=== PATIENT | male | born 1970 | race Caucasian/White ===

== ENCOUNTER 2016-07-14 19:21 | Emergency (ER) | payer BC ==
[2016-07-14] MEDS ORDERED: Albuterol/Ipratropium 3.0-0.5 MG/3 ML Neb Soln NEB ONE (20:02)
[2016-07-14] MEDS ORDERED: Ketorolac 60 MG/2 ML SDV IM ONE (20:02)
--- NOTE | 2016-07-14 20:02 | EDM.PDOC ---
ED HISTORY OF PRESENT ILLNESS - General Chief Complaint: Respiratory Problem Stated Complaint: COUGH FOR A MONTH AND RIGHT RIB CAGE Time Seen by Provider: 07/14/16 19:50 - History of Present Illness INITIAL COMMENTS - FREE TEXT/NARRATIVE: HISTORY AND PHYSICAL: History of present illness: Patient for [id number] male presents concern of one month of intermittent coughing patient also has history chronic back pain he said prior abdominal surgery and comes in with right posterior upper back pain he equivocates of dislocation is wrapped to his right abdomen he states he feels this has been provoker aggravated by coughing and his struggle with this intermittent cough over last month to month and half to no reported fever chills nausea vomiting or other concerns Review of systems: As per history of present illness and below otherwise all systems reviewed and negative. Past medical history: As per history of present illness and as reviewed below otherwise noncontributory. Surgical history: As per history of present illness and as reviewed below otherwise noncontributory. Social history: No reported history of drug or alcohol abuse. Family history: As per history of present illness and as reviewed below otherwise noncontributory. Physical exam: HEENT: Atraumatic, normocephalic, pupils reactive, negative for conjunctival pallor or scleral icterus, mucous membranes moist, throat clear, neck supple, nontender, trachea midline. Lungs: Clear to auscultation, breath sounds equal bilaterally, chest nontender. Heart: S1S2, regular, negative for clicks, rubs, or JVD. Abdomen: Soft, nondistended, nontender. Negative for masses or hepatosplenomegaly. Equivocal right costovertebral tenderness Pelvis: Stable nontender. Genitourinary: Deferred. Rectal: Deferred. Extremities: Atraumatic, negative for cords or calf pain. Neurovascular unremarkable. Neuro: Awake, alert, oriented. Cranial nerves II through XII unremarkable. Cerebellum unremarkable. Motor and sensory unremarkable throughout. Exam nonfocal. Diagnostics: CBC CMP troponin chest x-ray EKG CT abdomen and pelvis Therapeutics: Toradol 60 mg IM Impression: #1 right-sided thoracoabdominal pain #2 history of chronic back Definitive disposition and diagnosis as appropriate pending reevaluation and review of above. - Related Data Allergies/ADRs: Allergies Allergy/AdvReac Type Severity Reaction Status Date / Time No Known Allergies Allergy Verified 07/14/16 19:35 Home Meds: Home Meds Albuterol [Ventolin HFA] 2 puff INH Q4H PRN 11/01/14 [History] Citalopram [Citalopram Hbr] 40 mg PO DAILY 11/01/14 [History] Losartan [Cozaar] 50 mg PO DAILY 11/01/14 [History] Past Medical History - Past Surgical History Other Musculoskeletal Surgeries/Procedures:: right foot Social & Family History - Tobacco Use Smoking Status *Q: Former Smoker Years of Tobacco use: 20 Used Tobacco, but Quit: Yes Month Tobacco Last Used: 2009 Second Hand Smoke Exposure: Yes - Alcohol Use Days Per Week of Alcohol Use: 2 Number of Drinks Per Day: 4 Total Drinks Per Week: 8 - Recreational Drug Use Recreational Drug Use: No Drug Use in Last 12 Months: No Recreational Drug Type: Reports: Methamphetamine Recreational Drug Use Frequency: Not Used In Over 6 Months Recreational Drug Last Use: 2003 ED ROS GENERAL - Review of Systems Review Of Systems: ROS reveals no pertinent complaints other than HPI. ED EXAM, GENERAL - Physical Exam Exam: See Below (See dictation) Course - Vital Signs Last Recorded V/S: Last Vital Signs Temp 36.6 C 07/14/16 19:36 Pulse 117 H 07/14/16 19:36 Resp 22 H 07/14/16 19:36 BP 128/92 H 07/14/16 19:36 Pulse Ox 96 07/14/16 19:36 - Orders/Labs/Meds Orders: Active Orders 24 hr Category Date Time Status EKG Documentation Completion [RC] STAT Care 07/14/16 19:50 Active Pulse Oximetry [RC] ASDIRECTED Care 07/14/16 19:50 Active RT Aerosol Therapy [RC] ASDIRECTED Care 07/14/16 20:02 Active Abdomen Pelvis wo Cont [CT] Stat Exams 07/14/16 19:51 Taken Chest 2V [CR] Stat Exams 07/14/16 19:51 Taken Labs: Laboratory Tests 07/14/16 07/14/16 07/14/16 Range/Units 20:00 20:03 20:03 WBC 8.98 (4.0-11.0) K/uL RBC 5.37 (4.50-5.90) M/uL Hgb 16.5 (13.0-17.0) g/dL Hct 49.6 (38.0-50.0) % MCV 92.4 (80.0-98.0) fL MCH 30.7 (27.0-32.0) pg MCHC 33.3 (31.0-37.0) g/dL RDW Std Deviation 49.0 (28.0-62.0) fl RDW Coeff of Venkata 15 (11.0-15.0) % Plt Count 200 (150-400) K/uL MPV 10.60 (7.40-12.00) fL Neut % (Auto) 67.2 (48.0-80.0) % Lymph % (Auto) 22.7 (16.0-40.0) % Rhea % (Auto) 9.8 (0.0-15.0) % Eos % (Auto) 0.0 (0.0-7.0) % Baso % (Auto) 0.3 (0.0-1.5) % Neut # (Auto) 6.0 H (1.4-5.7) K/uL Lymph # (Auto) 2.0 (0.6-2.4) K/uL Rhea # (Auto) 0.9 H (0.0-0.8) K/uL Eos # (Auto) 0.0 (0.0-0.7) K/uL Baso # (Auto) 0.0 (0.0-0.1) K/uL Nucleated RBC % 0.0 /100WBC Nucleated RBCs # 0 K/uL INR (0.86-1.11) Sodium 142 (136-146) mmol/L Potassium 4.5 (3.5-5.1) mmol/L Chloride 105 (98-110) mmol/L Carbon Dioxide 28 (21-31) mmol/L BUN 18 (6.0-23.0) mg/dL Creatinine 1.2 (0.6-1.5) mg/dL Est Cr Clr Drug Dosing 71.15 mL/min Estimated GFR (MDRD) > 60.0 ml/min Glucose 108 (60-110) mg/dL Calcium 10.0 (8.8-10.8) mg/dL Total Bilirubin 0.5 (0.1-1.5) mg/dL AST 20 (5-40) IU/L ALT 32 (8-54) IU/L Alkaline Phosphatase 95 (40-150) Troponin I (0.0-0.29) NG/ML Total Protein 7.7 (6.0-8.0) g/dL Albumin 4.0 (3.5-5.0) g/dL Globulin 3.7 H (2.0-3.5) g/dL Albumin/Globulin Ratio 1.1 L (1.3-2.8) Urine Color DARK YELLOW Urine Appearance SLT CLOUDY Urine pH 5.5 (5.0-8.0) Ur Specific Thorndike >= 1.030 (1.001-1.035) Urine Protein 30 (NEGATIVE) mg/dL Urine Glucose (UA) NEGATIVE (NEGATIVE) mg/dL Urine Ketones NEGATIVE (NEGATIVE) mg/dL Urine Occult Blood NEGATIVE (NEGATIVE) Urine Nitrite NEGATIVE (NEGATIVE) Urine Bilirubin SMALL H (NEGATIVE) Urine Ictotest NEGATIVE Urine Urobilinogen 1.0 (<2.0) EU/dL Ur Leukocyte Esterase NEGATIVE (NEGATIVE) Urine RBC 0-2 (0-2/HPF) Urine WBC 1-2 (0-5/HPF) Ur Epithelial Cells OCCASIONAL (NONE-FEW) Urine Bacteria RARE (NEGATIVE) Urine Mucus MODERATE (NONE-MOD) 07/14/16 07/14/16 Range/Units 20:03 20:03 WBC (4.0-11.0) K/uL RBC (4.50-5.90) M/uL Hgb (13.0-17.0) g/dL Hct (38.0-50.0) % MCV (80.0-98.0) fL MCH (27.0-32.0) pg MCHC (31.0-37.0) g/dL RDW Std Deviation (28.0-62.0) fl RDW Coeff of Venkata (11.0-15.0) % Plt Count (150-400) K/uL MPV (7.40-12.00) fL Neut % (Auto) (48.0-80.0) % Lymph % (Auto) (16.0-40.0) % Rhea % (Auto) (0.0-15.0) % Eos % (Auto) (0.0-7.0) % Baso % (Auto) (0.0-1.5) % Neut # (Auto) (1.4-5.7) K/uL Lymph # (Auto) (0.6-2.4) K/uL Rhea # (Auto) (0.0-0.8) K/uL Eos # (Auto) (0.0-0.7) K/uL Baso # (Auto) (0.0-0.1) K/uL Nucleated RBC % /100WBC Nucleated RBCs # K/uL INR 0.96 (0.86-1.11) Sodium (136-146) mmol/L Potassium (3.5-5.1) mmol/L Chloride (98-110) mmol/L Carbon Dioxide (21-31) mmol/L BUN (6.0-23.0) mg/dL Creatinine (0.6-1.5) mg/dL Est Cr Clr Drug Dosing mL/min Estimated GFR (MDRD) ml/min Glucose (60-110) mg/dL Calcium (8.8-10.8) mg/dL Total Bilirubin (0.1-1.5) mg/dL AST (5-40) IU/L ALT (8-54) IU/L Alkaline Phosphatase (40-150) Troponin I < 0.10 (0.0-0.29) NG/ML Total Protein (6.0-8.0) g/dL Albumin (3.5-5.0) g/dL Globulin (2.0-3.5) g/dL Albumin/Globulin Ratio (1.3-2.8) Urine Color Urine Appearance Urine pH (5.0-8.0) Ur Specific Thorndike (1.001-1.035) Urine Protein (NEGATIVE) mg/dL Urine Glucose (UA) (NEGATIVE) mg/dL Urine Ketones (NEGATIVE) mg/dL Urine Occult Blood (NEGATIVE) Urine Nitrite (NEGATIVE) Urine Bilirubin (NEGATIVE) Urine Ictotest Urine Urobilinogen (<2.0) EU/dL Ur Leukocyte Esterase (NEGATIVE) Urine RBC (0-2/HPF) Urine WBC (0-5/HPF) Ur Epithelial Cells (NONE-FEW) Urine Bacteria (NEGATIVE) Urine Mucus (NONE-MOD) Meds: Medications Discontinued Medications Generic Name Dose Route Start Last Admin Trade Name Freq PRN Reason Stop Dose Admin Albuterol/Ipratropium 3 ml 07/14/16 20:02 07/14/16 20:10 Duoneb 3.0-0.5 Mg/3 Ml NEB 07/14/16 20:03 3 ml ONETIME ONE Administration Ketorolac Tromethamine 60 mg 07/14/16 20:02 07/14/16 20:39 Toradol IM 07/14/16 20:03 60 mg ONETIME ONE Administration Departure - Departure Time of Disposition: 21:22 Disposition: Home, Self-Care 01 Condition: good Clinical Impression: Thoracic back pain, Abdominal pain Referrals: PCP,None [Primary Care Provider] - Forms: ED Department Discharge Additional Instructions: The following information is given to patients seen in the emergency department who are being discharged to home. This information is to outline your options for follow-up care. We provide all patients seen in our emergency department with a follow-up referral. The need for follow-up, as well as the timing and circumstances, are variable depending upon the specifics of your emergency department visit. If you don't have a primary care physician on staff, we will provide you with a referral. We always advise you to contact your personal physician following an emergency department visit to inform them of the circumstance of the visit and for follow-up with them and/or the need for any referrals to a consulting specialist. The emergency department will also refer you to a specialist when appropriate. This referral assures that you have the opportunity for followup care with a specialist. All of these measure are taken in an effort to provide you with optimal care, which includes your followup. Under all circumstances we always encourage you to contact your private physician who remains a resource for coordinating your care. When calling for followup care, please make the office aware that this follow-up is from your recent emergency room visit. If for any reason you are refused follow-up, please contact the [facility] emergency department at and asked to speak to the emergency department charge nurse. Followup primary medical doctor one to 2 days return as needed as discussed Ultram albuterol as prescribed - My Orders Last 24 Hours: My Active Orders 07/14/16 19:50 EKG Documentation Completion [RC] STAT Pulse Oximetry [RC] ASDIRECTED 07/14/16 19:51 Abdomen Pelvis wo Cont [CT] Stat Chest 2V [CR] Stat 07/14/16 20:02 RT Aerosol Therapy [RC] ASDIRECTED - Assessment/Plan Last 24 Hours: My Active Orders 07/14/16 19:50 EKG Documentation Completion [RC] STAT Pulse Oximetry [RC] ASDIRECTED 07/14/16 19:51 Abdomen Pelvis wo Cont [CT] Stat Chest 2V [CR] Stat 07/14/16 20:02 RT Aerosol Therapy [RC] ASDIRECTED
[2016-07-14 20:31] LABS: CHLORIDE,CL 105 mmol/L (98-110); SODIUM,NA 142 mmol/L (136-146)
[2016-07-14 21:38] VITALS: BP 130/80
--- NOTE | 2016-07-17 09:42 | CT ---
EXAM DATE: 07/14/16 PATIENT'S AGE: 45 Patient: BENNIE CUNNINGHAM Facility: [place], [place] Site . Site : 1970 Study: CT Abdomen/Pelvis [id number]/21/[id number] 8:37:43 PM Ordering Physician: Bucky Berger Final Report: INDICATION: RUQ pain. CT ABDOMEN AND PELVIS WITHOUT CONTRAST TECHNIQUE: Multidetector CT imaging was performed through the abdomen and pelvis without intravenous contrast administration. Coronal and sagittal reconstructions were generated. COMPARISON: None. FINDINGS: Lower chest: Lung bases are clear. Liver: Diffuse fatty infiltration of liver. Gallbladder and bile ducts: Partially contracted gallbladder. No gallbladder wall thickening or calcified gallstones. No biliary dilation identified. Pancreas: Unremarkable. Spleen: Normal. Adrenals: No nodules or masses. Kidneys, ureters, and urinary bladder: No urinary tract stones identified. No renal masses or hydronephrosis. No bladder mass or definite wall thickening. Gastrointestinal tract: Normal caliber small bowel without wall thickening or obstruction. Appendix not identified, likely surgically absent. A few scattered colon diverticula, without evidence of diverticulitis. Abdominal wall: 6 centimeter fat-containing ventral hernia just superior to the umbilicus. Several surgical clips are seen within the anterior mid abdomen just deep to this hernia. Vascular structures: Normal for age. Peritoneum: No free air, abscess, or significant free fluid. Lymph nodes: No pathologically enlarged nodes identified. Reproductive organs: No pelvic masses. Bones: Normal for age. IMPRESSION: 1. No acute abnormality identified. 2. Fatty infiltration of the liver. 3. 6 centimeter fat-containing supraumbilical hernia. 4. Mild colonic diverticulosis. CHRIS DUVALL MD [employer] Dictated by Paul Duvall MD @ 07/14/2016 9:03:56 PM Dictated by: Paul Duvall MD @ 07/14/2016 21:04:28 (Electronic Signature) Report Signed by Proxy and Original Signed Document filed in the Medical Record. [facility]
--- NOTE | 2016-07-17 09:43 | CR ---
EXAM DATE: 07/14/16 PATIENT'S AGE: 45 Patient: BENNIE CUNNINGHAM Facility: [place], [place] Site . Site : 1970 Study: XRay Chest [id number]/21/[id number] 8:43:57 PM Ordering Physician: Bucky Berger Final Report: INDICATIONS: Pain. Shortness of breath. TECHNIQUE: Chest 3 view. COMPARISON: Chest radiograph November 01, 2014. FINDINGS: No pneumothorax, pleural effusion or airspace consolidation. Cardiac and mediastinal contours are within normal limits. Upper abdomen and osseous structures show no acute abnormality. IMPRESSION: No acute cardiopulmonary disease. Dictated by Hu Menendez MD @ 07/14/2016 9:01:38 PM Dictated by: Hu Menendez MD @ 07/14/2016 21:01:59 (Electronic Signature) Report Signed by Proxy and Original Signed Document filed in the Medical Record. [facility]
== END 2016-07-14 21:36 | disposition home or self-care (01) ==
LOC: MW.ED 19:21
DX: M54.6 Pain in thoracic spine (principal); R10.9 Unspecified abdominal pain; Z79.899 Other long term (current) drug therapy
CPT/HCPCS: 36415; 71020; 74176; 80053; 81001; 84484; 85025; 85610; 93005; 94664; 96372; 99284; J1885

== ENCOUNTER 2019-12-14 15:08 | Emergency (ER) | payer MEDICAID, OTHER ==
--- NOTE | 2019-12-14 16:39 | EDM.PDOC ---
ED HPI GENERAL MEDICAL PROBLEM - General Chief Complaint: Respiratory Problem Stated Complaint: FEVER/COUGH/SOB Time Seen by Provider: 12/14/19 15:09 Source of Information: Reports: Patient History Limitations: Reports: No Limitations - History of Present Illness INITIAL COMMENTS - FREE TEXT/NARRATIVE: HISTORY AND PHYSICAL: History of present illness: Patient is a 49-year-old male who presents to the ED today with concern of asthma exacerbation and possible coinfection. Patient states for the past 8 days he has had fevers, cough, body aches, and fatigue. Patient states he is also had a loss in taste and smell. Patient states that a few days ago he was actually feeling worse and today feels like he is on the mend. Patient states he has been fever free for 48 to 72 hours now. Patient states that he came to the ED today after a friend was concerned that he possibly has COVID. Patient states that he has noticed his asthma is exacerbated and he is using his albuter ol inhaler and his Symbicort inhaler. Patient denies any other symptoms or concerns. Patient denies fever, chills, chest pain, shortness of breath. Denies headache, neck stiff ness, change in vision, syncope, or near syncope. Denies nausea, vomiting, abdominal pain, diarrhea, constipation, or dysuria. Has not noted any blood in urine or stool. Patient has been eating and drinking appropriately. Review of systems: As per history of present illness and below otherwise all systems reviewed and negative. Past medical history: As per history of present illness and as reviewed below otherwise noncontributory. Surgical history: As per history of present illness and as reviewed below otherwise noncontributory. Social history: See social history for further information Family history: As per history of present illness and as reviewed below otherwise noncontributory. Physical exam: General: Patient is alert, oriented, and in no acute distress. Patient sitting comfortably on exam table. HEENT: Atraumatic, normocephalic, pupils equal and reactive bilaterally, negative for conjunctival pallor or scleral icterus, mucous membranes moist, TMs normal bilaterally, throat clear, neck supple, nontender, trachea midline. No drooling or trismus noted. No meningeal signs. No hot potato voice noted. Lungs: Patient speaking clearly without breathlessness, no wheezing or stridor, no accessory muscle use or respiratory distress. Auscultation deferred due to current COV-ID 19 outbreak. Dry cough on exam. Heart: Auscultation deferred due to current COV-ID 19 outbreak. Abdomen: Soft, nondistended Pelvis: Stable nontender. Genitourinary: Deferred. Rectal: Deferred. Skin: Intact, warm, dry. No lesions or rashes noted. Extremities: Atraumatic, negative for cords or calf pain. Neurovascular unremarkable. Neuro: Awake, alert, oriented. Cranial nerves II through XII unremarkable. Cerebellum unremarkable. Motor and sensory unremarkable throughout. Exam nonfocal. Notes: Discussed importance for follow-up with primary care provider. Signs and symptoms that would prompt return to the ED thoroughly discussed with patient. Patient was provided with a pulse oximeter to carefully monitor oxygen levels at home and instructed on when to return to the ED. Contact precautions discussed with patient. Voices understanding and is agreeable to plan of care. Denies any further questions or concerns at this time. Diagnostics: COVID 19 (patient declines labwork or CXR) Therapeutics: None Prescription: Prednisone Impression: Asthma exacerbation Flu like symptoms Plan: 1. Take medication as prescribed. Continue to use her at home inhalers as prescribed to you as discussed. While symptomatic, take an additional puff of your Symbicort inhaler daily. 2. Follow-up with a primary care provider as discussed. Return to the ED as needed and as discussed. Definitive disposition and diagnosis as appropriate pending reevaluation and review of above. - Related Data Allergies Allergy/AdvReac Type Severity Reaction Status Date / Time No Known Allergies Allergy Verified 12/14/19 15:34 Home Meds: Home Meds Albuterol [Ventolin HFA] 2 puff INH Q4H PRN 11/01/14 [History] DULoxetine [Cymbalta] 30 mg PO DAILY 12/14/19 [History] predniSONE [Prednisone] 20 mg PO DAILY 5 Days #5 tablet 12/14/19 [Rx] Past Medical History Cardiovascular History: Reports: Hypertension Respiratory History: Reports: Asthma Gastrointestinal History: Reports: None Genitourinary History: Reports: None Musculoskeletal History: Reports: Back Pain, Chronic Neurological History: Reports: None Psychiatric History: Reports: None Endocrine/Metabolic History: Reports: None Hematologic History: Reports: None Immunologic History: Reports: None Oncologic (Cancer) History: Reports: None Dermatologic History: Reports: None - Infectious Disease History Infectious Disease History: Reports: None - Past Surgical History GI Surgical History: Reports: Hernia, Abdominal Other GI Surgeries/Procedures: with mesh implant Social & Family History - Family History Family Medical History: Noncontributory - Tobacco Use Smoking Status *Q: Current Some Day Smoker Years of Tobacco use: 30 Packs/Tins Daily: 0 - Caffeine Use Caffeine Use: Reports: Coffee - Recreational Drug Use Recreational Drug Use: No ED ROS GENERAL - Review of Systems Review Of Systems: Comprehensive ROS is negative, except as noted in HPI. ED EXAM, GENERAL - Physical Exam Exam: See Below (see dictation) Course - Vital Signs Last Recorded V/S: Last Vital Signs Temp 97.1 F 12/14/19 15:32 Pulse 95 12/14/19 15:32 Resp 16 12/14/19 15:32 BP 163/105 H 12/14/19 15:32 Pulse Ox 96 12/14/19 15:32 - Orders/Labs/Meds Orders: Active Orders 24 hr Category Date Time Status CORONAVIRUS COVID-19 PCR [facility] Stat Lab 12/14/19 15:31 Ordered Labs: Laboratory Tests 12/14/19 Range/Units 15:45 SARS CoV-2 RNA Rapid PINA NEGATIVE (NEGATIVE) Departure - Departure Time of Disposition: 16:33 Disposition: Home, Self-Care 01 Clinical Impression: Flu-like symptoms Asthma exacerbation Qualifiers: Asthma severity: unspecified severity Asthma persistence: unspecified Qualified Code(s): J45.901 - Unspecified asthma with (acute) exacerbation - Discharge Information Prescriptions: predniSONE [Prednisone] 20 mg PO DAILY 5 Days #5 tablet Referrals: Saurabh Ralph MD [Primary Care Provider] - Additional Instructions: The following information is given to patients seen in the emergency department who are being discharged to home. This information is to outline your options for follow-up care. We provide all patients seen in our emergency department with a follow-up referral. The need for follow-up, as well as the timing and circumstances, are variable depending upon the specifics of your emergency department visit. If you don't have a primary care physician on staff, we will provide you with a referral. We always advise you to contact your personal physician following an emergency department visit to inform them of the circumstance of the visit and for follow-up with them and/or the need for any referrals to a consulting specialist. The emergency department will also refer you to a specialist when appropriate. This referral assures that you have the opportunity for follow-up care with a specialist. All of these measure are taken in an effort to provide you with optimal care, which includes your follow-up. Under all circumstances we always encourage you to contact your private physician who remains a resource for coordinating your care. When calling for follow-up care, please make the office aware that this follow-up is from your recent emergency room visit. If for any reason you are refused follow-up, please contact the [facility] Emergency Department at and asked to speak to the emergency department charge nurse. [facility] [address] [place] [id number] [facility] [address] [place] [id number] 1. Take medication as prescribed. Continue to use her at home inhalers as prescribed to you as discussed. While symptomatic, take an additional puff of your Symbicort inhaler daily. 2. Follow-up with a primary care provider as discussed. Return to the ED as needed and as discussed. Sepsis Event Note (ED) - Evaluation Sepsis Screening Result: No Definite Risk - Focused Exam Vital Signs: Vital Signs Temp Pulse Resp BP Pulse Ox 12/14/19 15:32 97.1 F 95 16 163/105 H 96 - My Orders Last 24 Hours: My Active Orders 12/14/19 15:31 CORONAVIRUS COVID-19 PCR [facility] Stat - Assessment/Plan Last 24 Hours: My Active Orders 12/14/19 15:31 CORONAVIRUS COVID-19 PCR [facility] Stat
[2019-12-14 17:01] VITALS: BP 168/108; PULSE 89
== END 2019-12-14 16:53 | disposition home or self-care (01) ==
LOC: MW.ED 15:08
DX: J45.901 Unspecified asthma with (acute) exacerbation (principal); R05 Cough; R53.83 Other fatigue; R50.9 Fever, unspecified; I10 Essential (primary) hypertension; F17.210 Nicotine dependence, cigarettes, uncomplicated; Z79.899 Other long term (current) drug therapy; Z20.828 Contact with and (suspected) exposure to other viral communicable diseases
CPT/HCPCS: 99282; 99283; U0002

== ENCOUNTER 2020-01-11 04:48 | Emergency (ER) | payer MEDICAID, OTHER ==
[2020-01-11] MEDS ORDERED: Famotidine 20 MG/2 ML SDV IVPUSH ONE (05:12)
[2020-01-11] MEDS ORDERED: Morphine 4 MG/ML Syringe IVPUSH ONE (05:12)
[2020-01-11] MEDS ORDERED: Sodium Chloride 0.9% 10 ML SDV IV SCH (05:15)
[2020-01-11] MEDS ORDERED: Ondansetron 4 MG/2 ML SDV IVPUSH ONE (05:17)
[2020-01-11] MEDS ORDERED: Sodium Chloride 0.9% 1,000 ML IV ONE (05:27)
[2020-01-11] MEDS ORDERED: Ketorolac 30 MG/ML SDV IVPUSH ONE (05:29)
[2020-01-11] MEDS: Ketorolac 15 MG/ML SDV ONE ×2 (05:33→05:35)
[2020-01-11 05:39] LABS: BLOOD UREA NITROGEN,BUN 18 mg/dL (7.0-18.0); CARBON DIOXIDE,CO2 30.3 mmol/L (21.0-32.0); CHLORIDE,CL 101 mmol/L (98-107); GLUCOSE RANDOM 99 mg/dL (74-106); POTASSIUM,K 3.9 mmol/L (3.5-5.1); SODIUM,NA 137 mmol/L (136-148)
--- NOTE | 2020-01-11 06:14 | EDM.PDOC ---
ED HPI GENERAL MEDICAL PROBLEM - General Chief Complaint: Abdominal Pain Stated Complaint: EXTREME ABDOMINAL; BLOATING Time Seen by Provider: 01/11/20 04:56 - History of Present Illness INITIAL COMMENTS - FREE TEXT/NARRATIVE: CHIEF COMPLAINT(S): "My stomach is bloated." HISTORY OF PRESENT ILLNESS: This is a 49-year-old man with a past medical history of asthma and hypertension who comes to the emergency department with a chief complaint of "my stomach is bloated." The patient states that for approximately 12 hours now he has been experiencing pain located in his abdomen near his bellybutton and describes his pain "like a balloon." He states that he feels the pain through his back muscles and rates it as 8-10 out of 10. He states that this back pain is not worse than normal as he always has constant back pain. He states that he has tried vishal and lemon with water which did not help and does not have any associated nausea or vomiting. He denies any aggravating symptoms. He states that this has never happened before. However, he states that it feels like the last time he had a ruptured appendicitis. He denies any hematemesis, bilious emesis, hematochezia, or melena. He denies any chest pain. He states that he has though been sick for the last 5 weeks and was seen last time and was diagnosed with a possible lung infection. He states that he started to feel the same this morning like he had the flu but that resolved this evening. He denies any other symptoms such as headache, numbness, tingling, weakness. REVIEW OF SYSTEMS: Constitutional: Positive for subjective fever. Denies fever, chills. Eyes: Denies eye pain Ears, Nose, Mouth, & Throat: Denies earache, runny nose, sore throat Cardiovascular: Denies chest pain Respiratory: Denies shortness of breath Gastrointestinal: Positive for abdominal pain. Denies nausea, vomiting, diarrhea, hematochezia, melena, hematemesis, bilious emesis Genitourinary: Denies hematuria, dysuria Skin:Denies a rash Neurological: Denies blurred vision, headache Psychiatric: Positive for anxiety and depression PAST MEDICAL HISTORY: As per history of present illness and as reviewed below otherwise noncontributory. SURGICAL HISTORY: As per history of present illness and as reviewed below otherwise noncontributory. SOCIAL HISTORY: 1 pack of cigarettes per week. Denies marijuana cocaine, heroin. Occasional alcohol use. FAMILY HISTORY: Patient denies any family history EXAMINATION OF ORGAN SYSTEMS/BODY AREAS: Constitutional: Blood pressure was 203/106, heart rate 103, respiratory rate 24 with an oxygen saturation of 98% on room air. Temperature 35.8. General: Obese gentleman who is walking around the room rubbing his abdomen. Psychiatric: Appears anxious. Eyes: No scleral icterus or conjunctival erythema ENMT: Moist mucous membranes. No pharyngeal erythema Cardiovascular: Tachycardic but regular no gallops, murmurs, or rubs. Bilateral upper extremity pulses symmetric and intact. Bilateral 1+ lower extremity edema which is pitting. No JVD. Respiratory: Lungs clear to auscultation bilaterally. No wheezes, rales, or rhonchi. Speaking in full sentences. Gastrointestinal: Obese abdomen. Soft, diffusely tender to palpation, no rebound or guarding. Bowel sounds are normal. Exam limited secondary to patient body habitus. Genitourinary: No suprapubic tenderness Musculoskeletal: Normal range of motion. Skin: No lesions or abrasions. Neurological: Alert, GCS 15 MEDICAL DECISION MAKING AND COURSE IN THE ED WITH INTERPRETATION/REVIEW OF DIAGNOSTIC STUDIES: This is a 49-year-old man with a past medical history of a sthma and hypertension who comes to the emergency department with acute onset periumbilical abdominal pain in a patient who has had prior abdominal surgeries who is tachycardic and hypertensive with a nonspecific physical examination. At this time given that the patient has had prior intra-abdominal pathology I cannot rule out obstruction or other abdominal infection. We will obtain a CT abdomen pelvis with contrast for further evaluation. Given his age, hypertension, and obesity will obtain a cardiac work-up including CBC, BMP, magnesium, troponin, EKG, and chest x-ray. We will provide the patient with 1 L of normal saline bolus and provide the patient with 4 mg of IV morphine, 4 mg of IV Zofran. We will also obtain a coronavirus swab. Will provide the patient with famotidine. Twelve-lead EKG interpreted by myself. Normal sinus rhythm at a rate of 89beats per minute. Normal axis. NJ interval is 176ms. QRS duration is 83ms. ST segments are normal without elevations or depressions. No Q waves present. Hypertrophy not noted. No changes demonstrated from prior EKG dated 07/14/2016. Interpretation: Normal sinus rhythm Laboratory: CBC reveals an elevated hemoglobin at 19.7 and hematocrit of 58.0 otherwise unremarkable. Coags are within normal limits. CMP is unremarkable. Troponin x1 is negative. [id number] glucose was 101. The radiological images were viewed by myself along with reading the report from the radiologist. Chest x-ray does not reveal any acute cardiopulmonary process. CT abdomen pelvis without contrast reveals no acute findings. There is mild d iverticulosis and a fat-containing supraumbilical ventral hernia. On reevaluation, the patient stated that his pain had significantly improved. The patient was able to tolerate p.o. I did have a discussion regarding the CT findings I discussed with him that he need to follow-up with his primary care physician. He was amenable to this plan. On my reevaluation the patient's blood pressure had significantly improved therefore I do not believe there needs to be any intervention at this time. DISPOSITION: The patient was discharged home in stable condition. The patient will follow up with primary care physician within 1 week CONDITION: Fair PROCEDURES: None FINAL IMPRESSION(S)/DIAGNOSES: 1. Acute abdominal pain, unknown etiology Jose Chisholm M.D. mid abdominal Pain Score (Numeric/FACES): 10 - Related Data Allergies Allergy/AdvReac Type Severity Reaction Status Date / Time No Known Allergies Allergy Verified 01/11/20 05:00 Home Meds: Home Meds Albuterol [Ventolin HFA] 2 puff INH Q4H PRN 11/01/14 [History] Budesonide/Formoterol [Symbicort 160-4.5 MCG] 1 puff INH ASDIRECTED PRN 01/11/20 [History] Non-Formulary Medication [NF Drug] 1 tab PO DAILY 01/11/20 [History] Non-Formulary Medication [NF Drug] 1 tab PO DAILY 01/11/20 [History] traMADol [Ultram] 100 mg PO DAILY 01/11/20 [History] Past Medical History Cardiovascular History: Reports: Hypertension Respiratory History: Reports: Asthma Gastrointestinal History: Reports: None Genitourinary History: Reports: None Musculoskeletal History: Reports: Back Pain, Chronic Neurological History: Reports: None Psychiatric History: Reports: None Endocrine/Metabolic History: Reports: None Hematologic History: Reports: None Immunologic History: Reports: None Oncologic (Cancer) History: Reports: None Dermatologic History: Reports: None - Infectious Disease History Infectious Disease History: Reports: None - Past Surgical History GI Surgical History: Reports: Hernia, Abdominal Other GI Surgeries/Procedures: with mesh implant Social & Family History - Family History Family Medical History: Noncontributory - Tobacco Use Tobacco Use Status *Q: Current Some Day Tobacco User Years of Tobacco use: 30 Packs/Tins Daily: 0.1 - Caffeine Use Caffeine Use: Reports: Coffee - Recreational Drug Use Recreational Drug Use: No ED ROS GENERAL - Review of Systems Review Of Systems: See Below ED EXAM, GENERAL - Physical Exam Exam: See Below Course - Vital Signs Last Recorded V/S: Last Vital Signs Temp 35.8 C L 01/11/20 04:56 Pulse 86 01/11/20 06:51 Resp 20 01/11/20 06:51 BP 136/71 01/11/20 06:51 Pulse Ox 96 01/11/20 06:51 - Orders/Labs/Meds Orders: Active Orders 24 hr Category Date Time Status Blood Glucose Check, Bedside [RC] ONETIME Care 01/11/20 05:16 Active EKG Documentation Completion [RC] STAT Care 01/11/20 05:13 Active B-TYPE NATRIURETIC PEPTIDE,BNP [CHEM] Stat Lab 01/11/20 05:00 Received CORONAVIRUS COVID-19 PCR PHL Stat Lab 01/11/20 05:45 Received Sodium Chloride 0.9% [Normal Saline] Med 01/11/20 05:15 Active 999 ml IV .BOLUS Medication Orders Sodium Chloride (Normal Saline) 999 ml IV .BOLUS YANNICK Labs: Laboratory Tests 01/11/20 01/11/20 01/11/20 Range/Units 05:00 05:00 05:00 WBC 9.18 (4.0-11.0) K/uL RBC 6.16 H (4.50-5.90) M/uL Hgb 19.7 H (13.0-17.0) g/dL Hct 58.0 H (38.0-50.0) % MCV 94.2 (80.0-98.0) fL MCH 32.0 (27.0-32.0) pg MCHC 34.0 (31.0-37.0) g/dL RDW Std Deviation 47.8 (28.0-62.0) fl RDW Coeff of Venkata 14 (11.0-15.0) % Plt Count 177 (150-400) K/uL MPV 11.30 (7.40-12.00) fL Neut % (Auto) 49.2 (48.0-80.0) % Lymph % (Auto) 35.4 (16.0-40.0) % [place] % (Auto) 15.0 (0.0-15.0) % Eos % (Auto) 0.0 (0.0-7.0) % Baso % (Auto) 0.4 (0.0-1.5) % Neut # (Auto) 4.5 (1.4-5.7) K/uL Lymph # (Auto) 3.3 H (0.6-2.4) K/uL [place] # (Auto) 1.4 H (0.0-0.8) K/uL Eos # (Auto) 0.0 (0.0-0.7) K/uL Baso # (Auto) 0.0 (0.0-0.1) K/uL Nucleated RBC % 0.0 /100WBC Nucleated RBCs # 0 K/uL INR 0.99 Sodium 137 (136-148) mmol/L Potassium 3.9 (3.5-5.1) mmol/L Chloride 101 (98-107) mmol/L Carbon Dioxide 30.3 (21.0-32.0) mmol/L BUN 18 (7.0-18.0) mg/dL Creatinine 1.2 (0.8-1.3) mg/dL Est Cr Clr Drug Dosing 68.09 mL/min Estimated GFR (MDRD) > 60.0 ml/min Glucose 99 (74-106) mg/dL POC Glucose (60-110) mg/dL Calcium 9.2 (8.5-10.1) mg/dL Magnesium 1.9 (1.8-2.4) mg/dL Total Bilirubin 0.4 (0.2-1.0) mg/dL AST 25 (15-37) IU/L ALT 47 (14-63) IU/L Alkaline Phosphatase 99 (46-116) U/L Troponin I < 0.050 (0.000-0.056) ng/mL Total Protein 7.8 (6.4-8.2) g/dL Albumin 3.5 (3.4-5.0) g/dL Globulin 4.3 H (2.6-4.0) g/dL Albumin/Globulin Ratio 0.8 L (0.9-1.6) SARS CoV-2 RNA Rapid PINA (NEGATIVE) 01/11/20 01/11/20 Range/Units 05:22 05:45 WBC (4.0-11.0) K/uL RBC (4.50-5.90) M/uL Hgb (13.0-17.0) g/dL Hct (38.0-50.0) % MCV (80.0-98.0) fL MCH (27.0-32.0) pg MCHC (31.0-37.0) g/dL RDW Std Deviation (28.0-62.0) fl RDW Coeff of Venkata (11.0-15.0) % Plt Count (150-400) K/uL MPV (7.40-12.00) fL Neut % (Auto) (48.0-80.0) % Lymph % (Auto) (16.0-40.0) % [place] % (Auto) (0.0-15.0) % Eos % (Auto) (0.0-7.0) % Baso % (Auto) (0.0-1.5) % Neut # (Auto) (1.4-5.7) K/uL Lymph # (Auto) (0.6-2.4) K/uL [place] # (Auto) (0.0-0.8) K/uL Eos # (Auto) (0.0-0.7) K/uL Baso # (Auto) (0.0-0.1) K/uL Nucleated RBC % /100WBC Nucleated RBCs # K/uL INR Sodium (136-148) mmol/L Potassium (3.5-5.1) mmol/L Chloride (98-107) mmol/L Carbon Dioxide (21.0-32.0) mmol/L BUN (7.0-18.0) mg/dL Creatinine (0.8-1.3) mg/dL Est Cr Clr Drug Dosing mL/min Estimated GFR (MDRD) ml/min Glucose (74-106) mg/dL POC Glucose 101 (60-110) mg/dL Calcium (8.5-10.1) mg/dL Magnesium (1.8-2.4) mg/dL Total Bilirubin (0.2-1.0) mg/dL AST (15-37) IU/L ALT (14-63) IU/L Alkaline Phosphatase (46-116) U/L Troponin I (0.000-0.056) ng/mL Total Protein (6.4-8.2) g/dL Albumin (3.4-5.0) g/dL Globulin (2.6-4.0) g/dL Albumin/Globulin Ratio (0.9-1.6) SARS CoV-2 RNA Rapid PINA NEGATIVE (NEGATIVE) Meds: Medications Generic Name Dose Route Start Last Admin Trade Name Freq PRN Reason Stop Dose Admin Sodium Chloride 999 ml 01/11/20 05:15 Normal Saline IV .BOLUS YANNICK Discontinued Medications Generic Name Dose Route Start Last Admin Trade Name Freq PRN Reason Stop Dose Admin Famotidine 20 mg 01/11/20 05:12 01/11/20 05:33 Pepcid IVPUSH 01/11/20 05:13 20 mg ONETIME ONE Administration Sodium Chloride 1,000 mls @ 999 mls/hr 01/11/20 05:27 01/11/20 05:33 Normal Saline IV 01/11/20 06:27 999 mls/hr .Bolus ONE Administration Iopamidol 100 ml 01/11/20 06:32 01/11/20 06:32 Isovue-370 (76%) IVPUSH 01/11/20 06:33 100 ml ONETIME STA Administration Ketorolac Tromethamine 15 mg 01/11/20 05:29 01/11/20 05:38 Toradol IVPUSH 01/11/20 05:30 15 mg ONETIME ONE Administration Ketorolac Tromethamine Confirm 01/11/20 05:30 01/11/20 05:33 Toradol Administered 01/11/20 05:31 Not Given Dose 15 mg .ROUTE .STK-MED ONE Morphine Sulfate 4 mg 01/11/20 05:12 01/11/20 05:34 Morphine IVPUSH 01/11/20 05:13 Not Given ONETIME ONE Ondansetron HCl 4 mg 01/11/20 05:17 01/11/20 05:28 Zofran IVPUSH 01/11/20 05:18 4 mg ONETIME ONE Administration Departure - Departure Time of Disposition: 07:05 Disposition: Home, Self-Care 01 Condition: Fair Clinical Impression: Abdominal pain Qualifiers: Abdominal location: periumbilical Qualified Code(s): R10.33 - Periumbilical pain - Discharge Information *PRESCRIPTION DRUG MONITORING PROGRAM REVIEWED*: No *COPY OF PRESCRIPTION DRUG MONITORING REPORT IN PATIENT ADRI: No Instructions: Abdominal Pain, Adult, [id number] Referrals: PCP,None [Primary Care Provider] - Forms: ED Department Discharge Additional Instructions: The patient is informed of any results of their evaluation and diagnostic workup and all questions are answered. They are given discharge instructions and return precautions. The patient is stable for discharge. The patient states they understand and agree with the plan and that they will return if their symptoms get worse or if they have any new concerns. The following information is given to patients seen in the emergency department who are being discharged to home. This information is to outline your options for follow-up care. We provide all patients seen in our emergency department with a follow-up referral. The need for follow-up, as well as the timing and circumstances, are variable depending upon the specifics of your emergency department visit. If you don't have a primary care physician on staff, we will provide you with a referral. We always advise you to contact your personal physician following an emergency department visit to inform them of the circumstance of the visit and for follow-up with them and/or the need for any referrals to a consulting specialist. The emergency department will also refer you to a specialist when appropriate. This referral assures that you have the opportunity for follow-up care with a specialist. All of these measure are taken in an effort to provide you with optimal care, which includes your follow-up. Under all circumstances we always encourage you to contact your private physician who remains a resource for coordinating your care. When calling for follow-up care, please make the office aware that this follow-up is from your recent emergency room visit. If for any reason you are refused follow-up, please contact the [facility] Emergency Department at and asked to speak to the emergency department charge nurse. Gaby Kelly [facility] [address] [place] [id number] [facility] [address] [place] [address] PLEASE FOLLOW UP WITH YOUR PRIMARY CARE DOCTOR. PLEASE TAKE YOUR BLOOD PRESSURE MEDICATION PRESCRIBED. Sepsis Event Note (ED) - Evaluation Sepsis Screening Result: No Definite Risk - Focused Exam Vital Signs: Vital Signs Temp Pulse Resp BP Pulse Ox 01/11/20 06:51 86 20 136/71 96 01/11/20 06:00 101 H 20 169/92 H 96 01/11/20 04:56 35.8 C L 103 H 24 H 203/106 H 98 - My Orders Last 24 Hours: My Active Orders 01/11/20 05:00 B-TYPE NATRIURETIC PEPTIDE,BNP [CHEM] Stat 01/11/20 05:13 EKG Documentation Completion [RC] STAT 01/11/20 05:15 Sodium Chloride 0.9% [Normal Saline] 999 ml IV .BOLUS 01/11/20 05:16 Blood Glucose Check, Bedside [RC] ONETIME 01/11/20 05:45 CORONAVIRUS COVID-19 PCR PHL Stat - Assessment/Plan Last 24 Hours: My Active Orders 01/11/20 05:00 B-TYPE NATRIURETIC PEPTIDE,BNP [CHEM] Stat 01/11/20 05:13 EKG Documentation Completion [RC] STAT 01/11/20 05:15 Sodium Chloride 0.9% [Normal Saline] 999 ml IV .BOLUS 01/11/20 05:16 Blood Glucose Check, Bedside [RC] ONETIME 01/11/20 05:45 CORONAVIRUS COVID-19 PCR PHL Stat
[2020-01-11] MEDS ORDERED: Iopamidol 755 Mg/ML 100 ML Bottle IVPUSH STA (06:32)
--- NOTE | 2020-01-11 06:40 | CR ---
Indication: Shortness of breath Technique: Chest 1 view Comparison: July 14, 2016 Findings/Impression: Stable cardiac size. Normal pulmonary vasculature. No focal infiltrate, effusion, or pneumothorax. No acute osseous abnormality. Dictated by Hemalatha Toney MD @ Jan 11 2020 6:39AM Signed by Dr. Hemalatha Toney @ Jan 11 2020 6:40AM
--- NOTE | 2020-01-11 07:01 | CT ---
Abdominal distention. Technique contrast-enhanced CT abdomen pelvis COMPARISON: CT and pelvis 07/14/2016 FINDINGS: Heart size is normal. Lung bases demonstrate minimal atelectasis. No effusion. No pericardial effusion. Liver is unremarkable. Cholelithiasis. Pancreas adrenal glands spleen are unremarkable. Symmetric enhancement of both kidneys. No hydronephrosis. 1 cm a hypodense lesion in the in the right midkidney Hounsfield units slightly above 20 could reflect a hyperdense cyst incompletely assessed on this study. Appendectomy change. Urinary bladder is unremarkable. Prostate gland unremarkable. Minimal diverticulosis. Bowel is unremarkable. Fat containing left inguinal hernia. Supraumbilical fat containing ventral hernia. No suspicious bony lesions. Impression: 1. No acute findings in abdomen or pelvis. 2. Mild diverticulosis. 3. Fat containing supraumbilical ventral hernia. Please note that all CT scans at this facility use dose modulation, iterative reconstruction, and/or weight-based dosing when appropriate to reduce radiation dose to as low as reasonably achievable. Dictated by Tori Magana MD @ Jan 11 2020 6:53AM Signed by Dr. Tori Magana @ Jan 11 2020 6:59AM
[2020-01-11 07:26] VITALS: BP 160/60; PULSE 97
== END 2020-01-11 07:24 | disposition home or self-care (01) ==
LOC: MW.ED 04:48
DX: R10.33 Periumbilical pain (principal); Z20.828 Contact with and (suspected) exposure to other viral communicable diseases; I10 Essential (primary) hypertension; J45.909 Unspecified asthma, uncomplicated; E66.9 Obesity, unspecified; F17.210 Nicotine dependence, cigarettes, uncomplicated; Z68.43 Body mass index [BMI] 50.0-59.9, adult
CPT/HCPCS: 36415; 71045; 74177; 80053; 82962; 83735; 83880; 84484; 85025; 85610; 87635; 93005; 96374; 96375; 99285; J1885; J2405; J3490; J7030; Q9967; 93010; 99283; U0002

== ENCOUNTER 2020-04-05 22:46 | Emergency (ER) | payer MEDICAID ==
--- NOTE | 2020-04-05 23:20 | EDM.PDOC ---
ED HPI GENERAL MEDICAL PROBLEM - General Chief Complaint: Behavioral/Psych Stated Complaint: PANIC ATTACK Time Seen by Provider: 04/05/20 22:49 - History of Present Illness INITIAL COMMENTS - FREE TEXT/NARRATIVE: HISTORY AND PHYSICAL: History of present illness: This is a 49-year-old gentleman with a history significant for hypertension, chronic low back pain, status post appendectomy with mesh placement for hernia, morbid obesity, depression and anxiety, who presents ER today with complaints of having a panic attack and anxiety attack and having thoughts of harming himself with a gun. Patient reports that he has been extremely depressed and anxious secondary to concerns about losing everything because of financial issues. Patient reports that he has not had a job in almost 3 years secondary to back pain issues. Patient reports that last month he had some injections to his back with some relief in his discomfort. Patient denies any recent fevers, shakes, chills, nausea, vomiting, diarrhea, dysuria, frequency, urgency, chest pain, shortness of breath. Patient reports history of depression. Patient reports history of suicide attempt approximately 30 years ago but none since. Patient reports been having thoughts about shooting himself in the head with a gun secondary to depression over financial issues. Patient denies any attempt. Review of systems: As per history of present illness and below otherwise all systems reviewed and negative. Past medical history: As per history of present illness and as reviewed below otherwise noncontributory. Surgical history: As per history of present illness and as reviewed below otherwise noncontributory. Social history: No reported history of drug or alcohol abuse. Family history: As per history of present illness and as reviewed below otherwise non contributory. Physical exam: Constitutional: Patient is oriented to person, place, and time. Appears well- developed and well-nourished. No distress. HEENT: Moist mucous membranes Head: Normocephalic and atraumatic Eyes: Right eye exhibits no discharge. Left eye exhibits no discharge. No scleral icterus Neck: Normal range of motion. No tracheal deviation present. Cardiovascular: Normal rate and regular rhythm. Pulmonary: Effort normal, no respiratory distress. Abdominal: No distention Musculoskeletal: Normal range of motion Neurologic: Alert and oriented to person, place and time. Skin: [place], warm and dry. Psychiatric: Patient is extremely tearful in the ER. Patient appears hopeless and helpless. Nursing note and vital signs have been reviewed This patient was seen and evaluated during the 2019 SARS-CoV-2 novel coronavirus pandemic period. Community viral transmission is ongoing at time of this encounter and the emergency department is operating under pandemic response procedures. Diagnostics: CBC, CMP, Covid Therapeutics: Ativan 1 mg IV Assessment and plan: This is a 49-year-old gentleman who presents ER today with depression, anxiety, tearfulness, and SI. Patient has a plan and does have access to guns at home. After discussed with the patient that he will need to be transferred to [facility] for mental health evaluation, patient now is trying to deny that he is suicidal. I have had a long discussion with the patient that at this point, there are no other options other than being transferred to be cleared by mental health specialist which we do not hear here in [place]. Patient's labs are all within normal limits. I have discussed the case with At [facility] and he is agreed to accept patient for transfer for further mental health evaluation and screening. Patient be given a dose of Ativan IV here in the ED to help sedate him and relax him. D Definitive disposition and diagnosis as appropriate pending reevaluation and review of above. - Related Data Allergies Allergy/AdvReac Type Severity Reaction Status Date / Time No Known Allergies Allergy Verified 04/05/20 22:58 Home Meds: Home Meds DULoxetine [Cymbalta] 60 mg PO DAILY 04/05/20 [History] Non-Formulary Medication [NF Drug] 04/05/20 [History] Past Medical History Cardiovascular History: Reports: Hypertension Respiratory History: Reports: Asthma Gastrointestinal History: Reports: None Genitourinary History: Reports: None Musculoskeletal History: Reports: Back Pain, Chronic Neurological History: Reports: None Psychiatric History: Reports: None Endocrine/Metabolic History: Reports: None Hematologic History: Reports: None Immunologic History: Reports: None Oncologic (Cancer) History: Reports: None Dermatologic History: Reports: None - Infectious Disease History Infectious Disease History: Reports: None - Past Surgical History GI Surgical History: Reports: Hernia, Abdominal Other GI Surgeries/Procedures: with mesh implant Social & Family History - Family History Family Medical History: No Pertinent Family History - Caffeine Use Caffeine Use: Reports: Coffee ED ROS GENERAL - Review of Systems Review Of Systems: See Below ED EXAM, GENERAL - Physical Exam Exam: See Below #1 Interpretation EKG Interpretation Comments: EKG: As interpreted by ER physician: [place]: Nonspecific ST-T wave abnormalities Normal axis No evidence of ST elevation ME Sinus tachycardia 108, patient tearful and crying Course - Vital Signs Last Recorded V/S: Last Vital Signs Temp 97.2 F 04/06/20 00:53 Pulse 95 04/06/20 00:53 Resp 18 04/06/20 00:53 BP 138/85 04/06/20 00:53 Pulse Ox 96 04/06/20 00:53 - Orders/Labs/Meds Labs: Laboratory Tests 04/05/20 04/05/20 04/05/20 Range/Units 23:02 23:02 23:04 WBC 7.15 (4.0-11.0) K/uL RBC 6.38 H (4.50-5.90) M/uL Hgb 20.1 H (13.0-17.0) g/dL Hct 57.9 H (38.0-50.0) % MCV 90.8 (80.0-98.0) fL MCH 31.5 (27.0-32.0) pg MCHC 34.7 (31.0-37.0) g/dL RDW Std Deviation 47.2 (28.0-62.0) fl RDW Coeff of Venkata 15 (11.0-15.0) % Plt Count 157 (150-400) K/uL MPV 10.50 (7.40-12.00) fL Neut % (Auto) 61.0 (48.0-80.0) % Lymph % (Auto) 25.7 (16.0-40.0) % Dunn % (Auto) 12.3 (0.0-15.0) % Eos % (Auto) 0.7 (0.0-7.0) % Baso % (Auto) 0.3 (0.0-1.5) % Neut # (Auto) 4.4 (1.4-5.7) K/uL Lymph # (Auto) 1.8 (0.6-2.4) K/uL Dunn # (Auto) 0.9 H (0.0-0.8) K/uL Eos # (Auto) 0.1 (0.0-0.7) K/uL Baso # (Auto) 0.0 (0.0-0.1) K/uL Sodium 138 (136-148) mmol/L Potassium 3.6 (3.5-5.1) mmol/L Chloride 101 (98-107) mmol/L Carbon Dioxide 26.5 (21.0-32.0) mmol/L BUN 20 H (7.0-18.0) mg/dL Creatinine 1.2 (0.8-1.3) mg/dL Est Cr Clr Drug Dosing 68.09 mL/min Estimated GFR (MDRD) > 60.0 ml/min Glucose 94 (74-106) mg/dL Calcium 9.6 (8.5-10.1) mg/dL Magnesium 2.2 (1.8-2.4) mg/dL Total Bilirubin 0.7 (0.2-1.0) mg/dL AST 27 (15-37) IU/L ALT 49 (14-63) IU/L Alkaline Phosphatase 64 (46-116) U/L Total Protein 7.9 (6.4-8.2) g/dL Albumin 3.8 (3.4-5.0) g/dL Globulin 4.1 H (2.6-4.0) g/dL Albumin/Globulin Ratio 0.9 (0.9-1.6) TSH 3rd Generation 1.70 (0.36-3.74) uIU/mL Urine Color Urine Appearance Urine pH (5.0-8.0) Ur Specific [employer] [place] (1.001-1.035) Urine Protein (NEGATIVE) mg/dL Urine Glucose (UA) (NEGATIVE) mg/dL Urine Ketones (NEGATIVE) mg/dL Urine Occult Blood (NEGATIVE) Urine Nitrite (NEGATIVE) Urine Bilirubin (NEGATIVE) Urine Urobilinogen (<2.0) EU/dL Ur Leukocyte Esterase (NEGATIVE) Urine RBC (0-2/HPF) Urine WBC (0-5/HPF) Ur Epithelial Cells (NONE-FEW) Urine Bacteria (NEGATIVE) Urine Mucus (NONE-MOD) Salicylates 6.9 (0-20) mg/dL Urine Opiates Screen (NEGATIVE) Ur Oxycodone Screen (NEGATIVE) Urine Methadone Screen (NEGATIVE) Acetaminophen <2.0 ug/mL Ur Barbiturates Screen (NEGATIVE) Ur Phencyclidine Scrn (NEGATIVE) Ur Amphetamine Screen (NEGATIVE) U Methamphetamines Scrn (NEGATIVE) U Benzodiazepines Scrn (NEGATIVE) U Cocaine Metab Screen (NEGATIVE) U Marijuana (THC) Screen (NEGATIVE) Ethyl Alcohol 4 mg/dL SARS-CoV-2 RNA (PINA) NEGATIVE (NEGATIVE) 04/06/20 04/06/20 Range/Units 01:02 01:02 WBC (4.0-11.0) K/uL RBC (4.50-5.90) M/uL Hgb (13.0-17.0) g/dL Hct (38.0-50.0) % MCV (80.0-98.0) fL MCH (27.0-32.0) pg MCHC (31.0-37.0) g/dL RDW Std Deviation (28.0-62.0) fl RDW Coeff of Venkata (11.0-15.0) % Plt Count (150-400) K/uL MPV (7.40-12.00) fL Neut % (Auto) (48.0-80.0) % Lymph % (Auto) (16.0-40.0) % Dunn % (Auto) (0.0-15.0) % Eos % (Auto) (0.0-7.0) % Baso % (Auto) (0.0-1.5) % Neut # (Auto) (1.4-5.7) K/uL Lymph # (Auto) (0.6-2.4) K/uL Dunn # (Auto) (0.0-0.8) K/uL Eos # (Auto) (0.0-0.7) K/uL Baso # (Auto) (0.0-0.1) K/uL Sodium (136-148) mmol/L Potassium (3.5-5.1) mmol/L Chloride (98-107) mmol/L Carbon Dioxide (21.0-32.0) mmol/L BUN (7.0-18.0) mg/dL Creatinine (0.8-1.3) mg/dL Est Cr Clr Drug Dosing mL/min Estimated GFR (MDRD) ml/min Glucose (74-106) mg/dL Calcium (8.5-10.1) mg/dL Magnesium (1.8-2.4) mg/dL Total Bilirubin (0.2-1.0) mg/dL AST (15-37) IU/L ALT (14-63) IU/L Alkaline Phosphatase (46-116) U/L Total Protein (6.4-8.2) g/dL Albumin (3.4-5.0) g/dL Globulin (2.6-4.0) g/dL Albumin/Globulin Ratio (0.9-1.6) TSH 3rd Generation (0.36-3.74) uIU/mL Urine Color YELLOW Urine Appearance CLEAR Urine pH 5.0 (5.0-8.0) Ur Specific [employer] >= 1.030 (1.001-1.035) Urine Protein NEGATIVE (NEGATIVE) mg/dL Urine Glucose (UA) NEGATIVE (NEGATIVE) mg/dL Urine Ketones TRACE H (NEGATIVE) mg/dL Urine Occult Blood NEGATIVE (NEGATIVE) Urine Nitrite NEGATIVE (NEGATIVE) Urine Bilirubin NEGATIVE (NEGATIVE) Urine Urobilinogen 0.2 (<2.0) EU/dL Ur Leukocyte Esterase NEGATIVE (NEGATIVE) Urine RBC NONE SEEN (0-2/HPF) Urine WBC 0-1 (0-5/HPF) Ur Epithelial Cells OCCASIONAL (NONE-FEW) Urine Bacteria FEW (NEGATIVE) Urine Mucus LIGHT (NONE-MOD) Salicylates (0-20) mg/dL Urine Opiates Screen NEGATIVE (NEGATIVE) Ur Oxycodone Screen NEGATIVE (NEGATIVE) Urine Methadone Screen NEGATIVE (NEGATIVE) Acetaminophen ug/mL Ur Barbiturates Screen NEGATIVE (NEGATIVE) Ur Phencyclidine Scrn NEGATIVE (NEGATIVE) Ur Amphetamine Screen NEGATIVE (NEGATIVE) U Methamphetamines Scrn NEGATIVE (NEGATIVE) U Benzodiazepines Scrn NEGATIVE (NEGATIVE) U Cocaine Metab Screen NEGATIVE (NEGATIVE) U Marijuana (THC) Screen NEGATIVE (NEGATIVE) Ethyl Alcohol mg/dL SARS-CoV-2 RNA (PINA) (NEGATIVE) Meds: Medications Discontinued Medications Generic Name Dose Route Start Last Admin Trade Name Freq PRN Reason Stop Dose Admin Ibuprofen 600 mg 04/06/20 00:52 04/06/20 00:54 Motrin PO 04/06/20 00:53 600 mg ONETIME ONE Administration Lorazepam 2 mg 04/06/20 00:21 04/06/20 00:28 Ativan PO 04/06/20 00:22 2 mg ONETIME ONE Administration Departure - Departure Time of Disposition: 00:19 Disposition: DC/Tfer to Psych Hosp/Unit 65 Condition: Good Clinical Impression: Depressive disorder, Self-harm, Suicidal ideation MDD (major depressive disorder) Qualifiers: Major depression recurrence: single episode Active/Remission status: currently active Major depression episode severity: severe Psychotic features: without psychotic features Qualified Code(s): F32.2 - Major depressive disorder, single episode, severe without psychotic features - Discharge Information Referrals: Saurabh Ralph MD [Primary Care Provider] - Forms: ED Department Discharge Sepsis Event Note (ED) - Evaluation Sepsis Screening Result: No Definite Risk - Focused Exam Vital Signs: Vital Signs Temp Pulse Resp BP Pulse Ox 04/06/20 00:53 97.2 F 95 18 138/85 96 04/05/20 22:53 98.6 F 121 H 18 93 L
[2020-04-05 23:43] LABS: ACETAMINOPHEN <2.0 ug/mL; BLOOD UREA NITROGEN,BUN 20 mg/dL (7.0-18.0); CARBON DIOXIDE,CO2 26.5 mmol/L (21.0-32.0); CHLORIDE,CL 101 mmol/L (98-107); GLUCOSE RANDOM 94 mg/dL (74-106); POTASSIUM,K 3.6 mmol/L (3.5-5.1); SODIUM,NA 138 mmol/L (136-148)
[2020-04-06] MEDS: LORazepam 1 MG Tab PO ONE (00:28)
[2020-04-06 00:54] VITALS: BP 138/85; PULSE 95
[2020-04-06] MEDS: Ibuprofen 600 MG Tab PO ONE (00:54)
== END 2020-04-06 01:20 ==
LOC: MW.ED 22:46
DX: F32.2 Major depressive disorder, single episode, severe without psychotic features (principal); I10 Essential (primary) hypertension; E66.01 Morbid (severe) obesity due to excess calories; Z68.43 Body mass index [BMI] 50.0-59.9, adult; J45.909 Unspecified asthma, uncomplicated; Z79.899 Other long term (current) drug therapy; Z20.822 Contact with and (suspected) exposure to COVID-19
CPT/HCPCS: 36415; 80053; 80143; 80179; 80305; 80307; 81001; 81003; 83735; 84443; 85025; 87635; 93005; 99285; A9270; 93010; 99284; U0002

== ENCOUNTER 2020-07-17 18:58 | Emergency (ER) | payer MEDICAID ==
[2020-07-17 20:18] LABS: CORONAVIRUS COVID-19 NAA NEGATIVE (NEGATIVE); INFLUENZA A NAA NEGATIVE (NEGATIVE); INFLUENZA B NAA NEGATIVE (NEGATIVE)
[2020-07-17] MEDS ORDERED: Octyl 2-Cyanoacrylate 1 Tube TOP ONE (20:23)
--- NOTE | 2020-07-17 21:01 | CR ---
INDICATION: Cough TECHNIQUE: Upright AP view of the chest COMPARISON: AP chest radiograph 01/11/2020 FINDINGS: The lungs are clear. There is no sizable pleural effusion or pneumothorax. The cardiomediastinal silhouette is normal. The visualized osseous structures are unremarkable. IMPRESSION: No acute intrathoracic process. Dictated by Jace Willis MD @ 07/17/2020 8:59:[address] Jace Willis @ Jul 17 2020 8:59PM
[2020-07-17 21:04] LABS: BLOOD UREA NITROGEN,BUN 13 mg/dL (7.0-18.0); CHLORIDE,CL 101 mmol/L (98-107); GLUCOSE RANDOM 96 mg/dL (74-106); POTASSIUM,K 3.9 mmol/L (3.5-5.1); SODIUM,NA 140 mmol/L (136-148)
--- NOTE | 2020-07-17 21:35 | EDM.PDOC ---
ED HPI GENERAL MEDICAL PROBLEM - General Chief Complaint: General Stated Complaint: BODY ACHE Time Seen by Provider: 07/17/20 19:01 Source of Information: Reports: Patient History Limitations: Reports: No Limitations - History of Present Illness INITIAL COMMENTS - FREE TEXT/NARRATIVE: HISTORY AND PHYSICAL: History of present illness: Patient is a 49-year-old male who presents emergency room today with concern of generalized body aches and fatigue over the past 2 days. Patient states that he has flulike symptoms and was concerned about possible influenza or COVID-19 infection. Patient states that he has "body aches all over "and states that last night he felt like he had the chills but states that he has not had a documented fever or has checked for a fever at home. Patient states today he has felt fatigued and tired and like he is "rundown" along with the body aches. Patient states that he also had an episode of coughing approximately 1 to 2 hours prior to coming to the emergency room so came for further evaluation. Patient has a history of hypertension but denies any other health history. Denies any other symptoms or concerns. Patient denies fever, chills, chest pain, shortness of breath, or cough. Denies headache, neck stiff ness, change in vision, syncope, or near syncope. Denies nausea, vomiting, abdominal pain, diarrhea, constipation, or dysuria. Has not noted any blood in urine or stool. Patient has been eating and drinking appropriately. Review of systems: As per history of present illness and below otherwise all systems reviewed and negative. Past medical history: As per history of present illness and as reviewed below otherwise noncontributory. Surgical history: As per history of present illness and as reviewed below otherwise n oncontributory. Social history: See social history for further information Family history: As per history of present illness and as reviewed below otherwise noncontributory. Physical exam: General: Patient is alert, oriented, and in no acute distress. Patient sitting comfortably on exam table, mildly tired appearing otherwise vitally stable and reviewed by me. HEENT: Atraumatic, normocephalic, pupils equal and reactive bilaterally, negative for conjunctival pallor or scleral icterus, mucous membranes moist, TMs normal bilaterally, throat clear, neck supple, nontender, trachea midline. No drooling or trismus noted. No meningeal signs. No hot potato voice noted. Lungs: Clear to auscultation, breath sounds equal bilaterally, chest nontender. Heart: S1S2, regular rate and rhythm without overt murmur Abdomen: Soft, nondistended, nontender. Negative for masses or hepatosplenomegaly. Negative for costovertebral tenderness. Pelvis: Stable nontender. Genitourinary: Deferred. Rectal: Deferred. Skin: Intact, warm, dry. No lesions or rashes noted. Extremities: Atraumatic, negative for cords or calf pain. Neurovascular unremarkable. Neuro: Awake, alert, oriented. Cranial nerves II through XII unremarkable. Cerebellum unremarkable. Motor and sensory unremarkable throughout. Exam nonfocal. Notes: On initial exam, patient is mildly tired appearing but otherwise nontoxic and in no acute distress. He is vitally stable. Patient presents emergency room today for generalized body aches, increased fatigue, and an episode of coughing with concern for COVID-19 and influenza. Will obtain COVID-19 influenza swab as well as basic lab work and a chest x-ray. Lab work today is unremarkable. Chest x-ray shows no acute cardiopulmonary findings. COVID-19 and influenza test negative. Signs and symptoms that were prompt return to the ED thoroughly discussed with patient. Discussed importance for follow-up with a primary care provider. Voices understanding and is agreeable to plan of care. Denies any further questions or concerns at this time. Diagnostics: COVID/Flu, CBC, CMP, CXR Therapeutics: None Prescription: None Impression: Generalized body aches Fatigue Flu like symptoms Plan: 1. You can alternate ibuprofen and Tylenol as directed for pain and discomfort. 2. Follow-up with a primary care provider as discussed. Return to the ED as needed and as discussed. Definitive disposition and diagnosis as appropriate pending reevaluation and review of above. Upper Back Pain Score (Numeric/FACES): 7 - Related Data Allergies Allergy/AdvReac Type Severity Reaction Status Date / Time No Known Allergies Allergy Verified 07/17/20 19:27 Home Meds: Home Meds DULoxetine [Cymbalta] 60 mg PO DAILY 04/05/20 [History] Non-Formulary Medication [NF Drug] 04/05/20 [History] Past Medical History HEENT History: Reports: None Cardiovascular History: Reports: Hypertension Respiratory History: Reports: Asthma Gastrointestinal History: Reports: None Genitourinary History: Reports: None Musculoskeletal History: Reports: Back Pain, Chronic Neurological History: Reports: None Psychiatric History: Reports: None Endocrine/Metabolic History: Reports: None Hematologic History: Reports: None Immunologic History: Reports: None Oncologic (Cancer) History: Reports: None Dermatologic History: Reports: None - Infectious Disease History Infectious Disease History: Reports: None - Past Surgical History Head Surgeries/Procedures: Reports: None Cardiovascular Surgical History: Reports: None GI Surgical History: Reports: Hernia, Abdominal Other GI Surgeries/Procedures: with mesh implant Other Musculoskeletal Surgeries/Procedures:: right foot Oncologic Surgical History: Reports: None Social & Family History - Family History Family Medical History: No Pertinent Family History - Tobacco Use Tobacco Use Status *Q: Never Tobacco User - Caffeine Use Caffeine Use: Reports: None - Recreational Drug Use Recreational Drug Use: No ED ROS GENERAL - Review of Systems Review Of Systems: Comprehensive ROS is negative, except as noted in HPI. ED EXAM, GENERAL - Physical Exam Exam: See Below (see dictation) Course - Vital Signs Last Recorded V/S: Last Vital Signs Temp 97.5 F 07/17/20 19:29 Pulse 77 07/17/20 20:17 Resp 18 07/17/20 20:17 BP 145/91 H 07/17/20 20:17 Pulse Ox 97 07/17/20 20:17 - Orders/Labs/Meds Labs: Laboratory Tests 07/17/20 07/17/20 07/17/20 Range/Units 19:35 20:37 20:37 WBC 6.05 (4.0-11.0) K/uL RBC 5.52 (4.50-5.90) M/uL Hgb 17.6 H (13.0-17.0) g/dL Hct 50.4 H (38.0-50.0) % MCV 91.3 (80.0-98.0) fL MCH 31.9 (27.0-32.0) pg MCHC 34.9 (31.0-37.0) g/dL RDW Std Deviation 44.3 (28.0-62.0) fl RDW Coeff of Venkata 13 (11.0-15.0) % Plt Count 189 (150-400) K/uL MPV 10.90 (7.40-12.00) fL Neut % (Auto) 51.6 (48.0-80.0) % Lymph % (Auto) 37.5 (16.0-40.0) % Becker % (Auto) 10.4 (0.0-15.0) % Eos % (Auto) 0.0 (0.0-7.0) % Baso % (Auto) 0.5 (0.0-1.5) % Neut # (Auto) 3.1 (1.4-5.7) K/uL Lymph # (Auto) 2.3 (0.6-2.4) K/uL [place] # (Auto) 0.6 (0.0-0.8) K/uL Eos # (Auto) 0.0 (0.0-0.7) K/uL Baso # (Auto) 0.0 (0.0-0.1) K/uL Nucleated RBC % 0.0 /100WBC Nucleated RBCs # 0 K/uL Sodium 140 (136-148) mmol/L Potassium 3.9 (3.5-5.1) mmol/L Chloride 101 (98-107) mmol/L Carbon Dioxide 31.0 (21.0-32.0) mmol/L BUN 13 (7.0-18.0) mg/dL Creatinine 1.1 (0.8-1.3) mg/dL Est Cr Clr Drug Dosing 74.28 mL/min Estimated GFR (MDRD) > 60.0 ml/min Glucose 96 (74-106) mg/dL Calcium 9.1 (8.5-10.1) mg/dL Total Bilirubin 0.4 (0.2-1.0) mg/dL AST 21 (15-37) IU/L ALT 43 (14-63) IU/L Alkaline Phosphatase 95 (46-116) U/L Total Protein 7.4 (6.4-8.2) g/dL Albumin 3.2 L (3.4-5.0) g/dL Globulin 4.2 H (2.6-4.0) g/dL Albumin/Globulin Ratio 0.8 L (0.9-1.6) Influenza Type A RNA NEGATIVE (NEGATIVE) Influenza Type B RNA NEGATIVE (NEGATIVE) SARS-CoV-2 RNA (PINA) NEGATIVE (NEGATIVE) Meds: Medications Discontinued Medications Generic Name Dose Route Start Last Admin Trade Name Freq PRN Reason Stop Dose Admin Octyl Cyanoacrylate 1 applic 04/24/21 20:23 07/17/20 20:25 Octyl 2-Cyanoacrylate 1 Tube TOP 07/17/20 20:24 Not Given ONETIME ONE Departure - Departure Time of Disposition: 21:34 Disposition: Home, Self-Care 01 Clinical Impression: Flu-like symptoms, Generalized body aches Fatigue Qualifiers: Fatigue type: unspecified Qualified Code(s): R53.83 - Other fatigue - Discharge Information Referrals: Saurabh Ralph MD [Primary Care Provider] - Forms: ED Department Discharge Additional Instructions: The following information is given to patients seen in the emergency department who are being discharged to home. This information is to outline your options for follow-up care. We provide all patients seen in our emergency department with a follow-up referral. The need for follow-up, as well as the timing and circumstances, are variable depending upon the specifics of your emergency department visit. If you don't have a primary care physician on staff, we will provide you with a referral. We always advise you to contact your personal physician following an emergency department visit to inform them of the circumstance of the visit and for follow-up with them and/or the need for any referrals to a consulting specialist. The emergency department will also refer you to a specialist when appropriate. This referral assures that you have the opportunity for follow-up care with a specialist. All of these measure are taken in an effort to provide you with optimal care, which includes your follow-up. Under all circumstances we always encourage you to contact your private physician who remains a resource for coordinating your care. When calling for follow-up care, please make the office aware that this follow-up is from your recent emergency room visit. If for any reason you are refused follow-up, please contact the [facility] Emergency Department at and asked to speak to the emergency department charge nurse. [facility] [address] [place] [id number] [id number] 1. You can alternate ibuprofen and Tylenol as directed for pain and discomfort. 2. Follow-up with your primary care provider as discussed. Return to the ED as needed and as discussed. Sepsis Event Note (ED) - Evaluation Sepsis Screening Result: No Definite Risk - Focused Exam Vital Signs: Vital Signs Temp Pulse Resp BP Pulse Ox 07/17/20 20:17 77 18 145/91 H 97 07/17/20 19:29 97.5 F 81 17 160/91 H 96
[2020-07-17 21:43] VITALS: BP 132/87; PULSE 78
== END 2020-07-17 21:43 | disposition home or self-care (01) ==
LOC: MW.ED 18:58
DX: J11.1 Influenza due to unidentified influenza virus with other respiratory manifestations (principal); R53.83 Other fatigue; I10 Essential (primary) hypertension; Z20.822 Contact with and (suspected) exposure to COVID-19
CPT/HCPCS: 0240U; 36415; 71045; 80053; 85025; 99283

== ENCOUNTER 2024-09-28 22:10 | Emergency (ER) | payer SELFPAY ==
[2024-09-28] MEDS ORDERED: Sodium Chloride 0.9% 10 ML Syringe FLUSH PRN (22:24)
[2024-09-28] MEDS ORDERED: Sodium Chloride 0.9% 2.5 ML Syringe FLUSH PRN (22:24)
[2024-09-28 22:30] LABS: BASOPHILS ABSOLUTE AUTO 0.04 K/uL (0.00-0.20); BASOPHILS PERCENT AUTO 0.6 % (0.0-1.0); EOSINOPHILS ABSOLUTE AUTO 0.31 K/uL (0.00-0.45); EOSINOPHILS PERCENT AUTO 4.4 % (0.0-6.0); IMMATURE GRAN ABSOLUTE AUTO 0.02 K/uL (0.00-0.05); IMMATURE GRAN PERCENT AUTO 0.3 % (0.0-0.4); LYMPHOCYTES ABSOLUTE AUTO 2.30 K/uL (1.00-4.80); LYMPHOCYTES PERCENT AUTO 32.7 % (24.0-44.0); MEAN PLATELET VOLUME 10.3 fL (9.4-12.4); MONOCYTES ABSOLUTE AUTO 0.61 K/uL (0.00-0.80); MONOCYTES PERCENT AUTO 8.7 % (0.0-8.0); NEUTROPHILS ABSOLUTE AUTO 3.75 K/uL (1.80-7.70); NEUTROPHILS PERCENT AUTO 53.3 % (41.0-71.0); NRBC ABSOLUTE 0.00 K/uL (0.00-0.02); NRBC PERCENT 0.0 /100WBC (0.0-0.2); PLATELET COUNT,PLT 206 K/uL (150-400); RED BLOOD CELL COUNT 5.95 M/uL (4.52-5.90); WHITE BLOOD CELL COUNT,WBC 7.03 K/uL (3.9-11.3)
[2024-09-28] MEDS: LORazepam 2 MG/ML SDV IVPUSH ONE (22:31)
[2024-09-28 22:58] LABS: BLOOD UREA NITROGEN,BUN 17.0 mg/dL (7.0-18.0); CARBON DIOXIDE,CO2 28.5 mmol/L (21.0-32.0); CHLORIDE,CL 101.0 mmol/L (98-107); CREATININE 1.3 mg/dL (0.8-1.3); EST CRCL DRUG DOSING (CG) 60.03 mL/min; GLUCOSE RANDOM 119.0 mg/dL (74-106); POTASSIUM,K 3.9 mmol/L (3.5-5.1); SODIUM,NA 139.0 mmol/L (136-148)
[2024-09-28 22:59] LABS: ESTIMATED GFR 65.0 mL/min (>60)
[2024-09-29 00:02] VITALS: BP 138/75; PULSE 82
== END 2024-09-29 00:24 ==
LOC: MW.ED 22:10
DX: R06.02 Shortness of breath (principal); I10 Essential (primary) hypertension; Z79.899 Other long term (current) drug therapy
CPT/HCPCS: 36415; 71045; 80048; 84484; 85025; 93005; 96374; 99285; J2060